=== PATIENT | male | born 1955 | race Caucasian/White ===

== ENCOUNTER → 2017-04-23 | Day surgery (SDC) | payer BC ==
[~2017-04-23] MED LIST: ACETAMINOPHEN PO; AMBIEN10 MG PO; ASPIRIN PO; ASPIRIN81 M2 PO; ATARAX PO; CARAFATE PO; CERTAGEN PO; CINNAMON CAP; CIPRO PO; CLOPIDOGREL75 MG PO; EFFIENT; FAMOTIDINE PO; FISH OIL 1,0001 CAP PO; KLONOPIN1 MG PO; LOPRESSOR PO; MEDROL PO; MOBIC PO; MULTIVITAMINS1 EAC3 PO; NITROQUICK0.4 MG SL; PANTOPRAZOLE SO40 MG PO; PERCOCET5/325 PO; PROTONIX PO; RANEXA500 MG PO; TOPROL XL PO; VASCEPA1 GM PO; VYTORIN; VYTORIN 10/20 T1 TAB PO; ZESTORETIC 20-1 EAC2 PO; ZESTORETIC 20/21 TAB PO
--- NOTE | ~2017-04-23 | OR ---
Unit #: [id number] #: [id number] Patient: ABDELRAHMAN CONLEY [id number] [address] [place], [place] [address] [id number] O MR#: [id number] NAME: ABDELRAHMAN CONLEY ROOM: Date of Procedure: 04/23/2017 Admission Date: 04/23/2017 Surgeon: Isak Mario M.D. : 1955 Attending Physician: Isak Mario M.D. Primary Care Physician: Dinorah Leo M.D. SURGERY CENTER OPERATIVE NOTE PROCEDURE PERFORMED Lumbar epidural steroid injection under x-ray guided needle placement with provider administered conscious sedation. PREOPERATIVE DIAGNOSES 1. Acute lumbar radiculitis. 2. Spinal stenosis, lumbosacral spine. 3. Herniated disk, multiple levels. 4. Degenerative joint disease, lumbosacral spine. 5. Degenerative disk disease, lumbosacral spine. 6. Facet arthrosis, lumbosacral spine. INDICATIONS FOR PROCEDURE The patient presents today with a months to years long history of chronic lumbar radicular pain as well as lumbar facet arthralgia secondary to his underlying degenerative processes. He has been unsuccessfully treated with medical management to include medications and physical therapy and presents today with a crescendo pattern of pain, which has failed to respond to the above-described interventions. He is in possession of MRI which is compatible with his disease complaints and shows multiple levels of degenerating disk as well as facet arthrosis. After discussing risks and benefits of proceeding today with an L4-L5 lumbar epidural steroid injection and return on 05/09/2017 for followup, the patient agreed this would be the appropriate course of action. He was also discussed with the patient the referral to [facility] for potential radiofrequency ablation, for which he agreed as well. DESCRIPTION OF PROCEDURE Following these discussions, the patient was taken to the operating room, where he was prepped and draped in a sterile manner. Standard monitors were applied. He was sedated with 2 mg of IV Versed and lumbar epidural space accessed at the L4-L5 level using loss of resistance technique and x-ray guidance. Needle placement was confirmed with injection of 2 mL of Omnipaque. Total x-ray time for this needle placement was 16 seconds. Following successful needle placement confirmation, the patient received an injectate containing 2 mL normal saline, 2 mL of 0.25% bupivacaine, and 80 mg of methylprednisolone. He tolerated this procedure well. He was discharged home with followup instructions, which included return on 05/09/2017, at which point, he will most likely have an L3-L4 with potential for dual needle placement as at today's injection approximately 90% of dye went to the caudad direction from the L4-L5 needle placement. Unit #: [id number] #: [id number] Patient: ABDELRAHMAN CONLEY Dictated by... Willian Hannah/chidi TD: 04/23/2017 16:16 JOB #: [id number] CC: Anderson Kim M.D. SURGERY CENTER OPERATIVE NOTE Page 1 of 1 X Raymond Mario MD X PROCEDURE OPERATIVE NOTE
== END | disposition home or self-care (01) ==
LOC: CCSC 14:08
DX: G89.29 Other chronic pain (principal); M51.17 Intervertebral disc disorders with radiculopathy, lumbosacral region; M47.27 Other spondylosis with radiculopathy, lumbosacral region; M48.07 Spinal stenosis, lumbosacral region; I25.10 Atherosclerotic heart disease of native coronary artery without angina pectoris; K21.9 Gastro-esophageal reflux disease without esophagitis; Z79.02 Long term (current) use of antithrombotics/antiplatelets; Z79.82 Long term (current) use of aspirin; Z79.899 Other long term (current) drug therapy; Z95.1 Presence of aortocoronary bypass graft; Z90.49 Acquired absence of other specified parts of digestive tract; Z98.890 Other specified postprocedural states
CPT/HCPCS: J1040; J2250

== ENCOUNTER → 2017-05-09 | Day surgery (SDC) | payer BC ==
--- NOTE | ~2017-05-09 | OR ---
Unit #: [id number] #: [id number] Patient: ABDELRAHMAN CONLEY [id number] [address] [place], [place] [address] [id number] O MR#: [id number] NAME: ABDELRAHMAN CONLEY ROOM: Date of Procedure: 05/09/2017 Admission Date: 05/09/2017 Surgeon: Isak Mario M.D. : 1955 Attending Physician: Isak Mario M.D. Primary Care Physician: Dinorah Leo M.D. SURGERY CENTER OPERATIVE NOTE PROCEDURE PERFORMED Lumbar epidural steroid injection under x-ray guided needle placement. PREOPERATIVE DIAGNOSES 1. Acute lumbar radiculitis. 2. Spinal stenosis, lumbosacral spine. 3. Degenerative joint disease, lumbosacral spine. 4. Degenerative disk disease, lumbosacral spine. 5. Facet arthralgia, lumbosacral spine. 6. Facet arthrosis, lumbosacral spine. INDICATIONS FOR PROCEDURE The patient presents today status post one previous lumbar approach epidural steroid injection for an acute radiculitis, which had failed to respond to conservative therapy. He states he got almost total relief with the initial injection; however, he has had some return of symptoms to the point that he is now on comfortable and desires a second epidural steroid injection. He is also pending of visit to [facility] for potential radiofrequency ablation. Following discussing risks and benefits of proceeding today with an L3-L4 epidural steroid injection, the patient agreed this would be the appropriate course of action. DESCRIPTION OF PROCEDURE He was then taken to the operating room, where he was prepped and draped in a sterile manner. Standard monitors were applied. He refused all forms of sedation and lumbar epidural space accessed at L3-L4 level using loss of resistance technique and x-ray guidance. Needle placement was confirmed with injection of 2 mL of Omnipaque. There was good superior and inferior flow at this L3-L4 level needle placement. Total x-ray time for today's procedure was 4 seconds. Following successful needle placement confirmation, the patient received an injectate containing 4 mL normal saline and 80 mg of methylprednisolone. He tolerated this procedure well. He was discharged home with followup instructions, which include return to this clinic on 08/13/2017 if we could be of further service to him. Dictated by... Willian Hannah/chidi TD: 05/09/2017 13:11 Unit #: [id number] #: [id number] Patient: ABDELRAHMAN CONLEY JOB #: [id number] CC: Anderson Kim M.D. SUR[facility]ERY CENTER OPERATIVE NOTE Page 1 of 1 X Raymond Mario MD X PROCEDURE OPERATIVE NOTE
== END | disposition home or self-care (01) ==
LOC: CCSC 08:16
DX: M51.17 Intervertebral disc disorders with radiculopathy, lumbosacral region (principal); M47.27 Other spondylosis with radiculopathy, lumbosacral region; M48.07 Spinal stenosis, lumbosacral region; I25.10 Atherosclerotic heart disease of native coronary artery without angina pectoris; K21.9 Gastro-esophageal reflux disease without esophagitis; Z95.1 Presence of aortocoronary bypass graft; Z90.49 Acquired absence of other specified parts of digestive tract; Z98.890 Other specified postprocedural states
CPT/HCPCS: J1040; J2250